=== PATIENT | male | born 1995 | race Caucasian/White ===

== ENCOUNTER 2020-07-18 15:43 | Outpatient (CLI) | payer OTHER, SELFPAY ==
--- NOTE | ~2020-07-18 | XR_ITS ---
XR lumbar spine 2-3V DATE: 07/18/2020 16:22 INDICATION: Low back and tailbone pain. Exercise injury 2 months ago. TECHNIQUE: AP, lateral, coned lateral lumbosacral views COMPARISON: None FINDINGS: There is mild dextro scoliosis of the lumbar spine. Normal alignment, no fracture or bone destruction. No spondylolisthesis. The included T11-L5 pedicles are intact. Lumbar and lumbosacral interspaces are well preserved. The sacroiliac joints are normal. Sacrum and coccyx appear unremarkable. IMPRESSION: Mild lumbar scoliosis Reviewed, dictated and finalized at location A. IMPRESSION: Mild lumbar scoliosis
--- NOTE | ~2020-07-18 | XR_ITS ---
XR sacrum coccyx min 2V DATE: 07/18/2020 16:22 INDICATION: Low back and sacral/coccygeal pain TECHNIQUE: AP, angled AP and lateral views COMPARISON: None FINDINGS: No fracture or dislocation or bone destruction of the sacrum or coccyx. Normal alignment a t the pubic symphysis sacroiliac joints. IMPRESSION: Negative Reviewed, dictated and finalized at location A. IMPRESSION: Negative
[2020-07-18 17:17] LABS: Basophils Absolute Auto 0.1 K/mm3 (0.0-0.1); Basophils Percent Auto 0.9 % (0.2-1.2); Eosinophils Absolute Auto 0.2 K/mm3 (0-0.3); Eosinophils Percent Auto 2.8 % (0-4.4); Hemoglobin 13.5 g/dL (14.0-18.0); Immature Granulocyte Absolute 0.03 K/mm3 (0.00-0.031); Immature Granulocyte Percent A 0.6 % (0-0.5); Lymphocytes Absolute Auto 1.63 K/mm3 (0.9-3.2); Lymphocytes Percent Auto 30.7 % (18.3-44.2); Mean Corpuscular HGB Conc 30.7 g/dl (32-36); Mean Corpuscular Hemoglobin 18.8 pg (26-34); Mean Corpuscular Volume 61.1 fl (80-100); Mean Platelet Volume 9.8 fl (7.4-10.4); Monocytes Absolute Auto 0.6 K/mm3 (0.1-0.6); Monocytes Percent Auto 10.5 % (2.6-8.5); Neutrophils Absolute Auto 2.9 K/mm3 (1.3-6.7); Neutrophils Percent Auto 54.5 % (45.5-73.1); Platelet Count Result 325 k/mm3 (150-375); Red Cell Distribution Width 17.6 % (11.5-14.5); White Blood Count 5.3 K/mm3 (4.5-10.0)
[2020-07-18 17:35] LABS: Alanine Aminotransferase 13 U/L (4-50); Albumin Level 4.4 g/dL (3.5-5.1); Alkaline Phosphatase 59 U/L (38-126); Anion Gap 8 mmol/L (8-16); Aspartate Amino Transferase 21 U/L (17-59); Bilirubin,Total 0.5 mg/dL (0.2-1.3); Blood Urea Nitrogen 16 mg/dL (9-20); Calcium 9.1 mg/dL (8.4-10.2); Carbon Dioxide 29 mmol/L (22-30); Chloride 101 mmol/L (98-107); Cholesterol 141 mg/dL (0-200); Estimated Glomerular Filt Rate > 60; Glucose 95 mg/dL (75-110); HDL Direct 53 mg/dL; Potassium 4.3 mmol/L (3.4-5.0); Sodium 138 mmol/L (137-145); Triglycerides 91 mg/dL (<150)
[2020-07-18 17:48] LABS: LDL Cholesterol Direct 69 mg/dL
[2020-07-18 18:07] LABS: Free T4 Free Thyroxine 0.96 ng/mL (0.78-2.19); Vitamin D 25 Hydroxy 36.4 ng/mL
[2020-07-18 18:10] LABS: Total Triiodothyronine (T3) 1.24 NG/ML (0.97-1.69)
== END 2020-07-18 15:44 | disposition home or self-care (01) ==
PROVIDERS: PCP Nurse Practitioner; Visit Provider Nurse Practitioner
DX: Z13.6 Encounter for screening for cardiovascular disorders (principal); Z13.220 Encounter for screening for lipoid disorders; Z13.29 Encounter for screening for other suspected endocrine disorder; E55.9 Vitamin D deficiency, unspecified; M54.5 Low back pain; M41.9 Scoliosis, unspecified
CPT/HCPCS: 36415; 72100; 72220; 80053; 80061; 82306; 84439; 84443; 84480; 85025